=== PATIENT | male | born 1930 | race Caucasian/White ===

== ENCOUNTER 2016-07-29 10:56 | Outpatient (CLI) | payer MEDICARE, OTHER | END 2016-07-29 10:57 | disposition home or self-care (01) | DX: Z71.3 Dietary counseling and surveillance (principal); K90.0 Celiac disease ==

== ENCOUNTER 2016-11-05 13:47 | Outpatient (CLI) | payer MEDICARE, OTHER | END 2016-11-05 13:48 | disposition home or self-care (01) | LOC: SC 13:47 | PROVIDERS: ATTEND Nurse Practitioner Family | DX: G47.33 Obstructive sleep apnea (adult) (pediatric) (principal) | CPT/HCPCS: 99214; G0463; 99212 ==

== ENCOUNTER 2017-04-16 15:52 | Outpatient (CLI) | payer MEDICARE, OTHER ==
[2017-04-17 09:38] LABS: ALBUMIN/GLOBULIN RATIO 1.7 (1.0-2.2); BILIRUBIN,TOTAL 0.8 mg/dL (0.2-1.0); CALCIUM 9.3 mg/dL (8.5-10.3); POTASSIUM 4.7 mmol/L (3.5-5.0); TOTAL PROTEIN 6.9 g/dL (6.7-8.2)
== END 2017-04-16 15:53 | disposition home or self-care (01) ==
LOC: LAB.WCP 15:52
PROVIDERS: ATTEND Family Medicine
DX: I10 Essential (primary) hypertension (principal); E79.0 Hyperuricemia without signs of inflammatory arthritis and tophaceous disease
CPT/HCPCS: 36415; 80053; 84550; 85025

== ENCOUNTER 2017-09-01 08:29 | Outpatient (CLI) | payer MEDICARE, OTHER ==
[2017-09-01 12:31] LABS: BASOPHILS % (AUTO) 0.4 %; EOSINOPHILS # (AUTO) 0.2 10^3/uL (0.0-0.7); EOSINOPHILS % (AUTO) 3.5 %; HGB - HEMOGLOBIN 15.2 g/dL (14.0-18.0); LYMPHOCYTES # (AUTO) 1.8 10^3/uL (1.5-3.5); MEAN CORPUSCULAR HEMOGLOBIN 31.6 pg (27.0-31.0); MEAN CORPUSCULAR HGB CONC 33.1 g/dL (32.0-36.0); MEAN CORPUSCULAR VOLUME 95.5 fL (80.0-94.0); MEAN PLATELET VOLUME 9.4 fL (7.4-11.4); MONOCYTES # (AUTO) 0.5 10^3/uL (0.0-1.0); MONOCYTES % (AUTO) 9.4 %; NEUTROPHILS # (AUTO) 2.8 10^3/uL (1.5-6.6); NEUTROPHILS % (AUTO) 52.7 %; PLT - PLATELET COUNT 134 10^3/uL (130-450); RED BLOOD COUNT 4.83 10^6/uL (4.70-6.10); RED CELL DISTRIBUTION WIDTH 13.9 % (12.0-15.0); WHITE BLOOD COUNT 5.4 x10^3/uL (4.8-10.8)
[2017-09-01 12:45] LABS: ALBUMIN 3.9 g/dL (3.2-5.5); ALBUMIN/GLOBULIN RATIO 1.3 (1.0-2.2); ALKALINE PHOSPHATASE 68 IU/L (42-121); ALT ALANINE AMINOTRANSFERASE 30 IU/L (10-60); AST ASPARTATE AMINOTRANSFERASE 33 IU/L (10-42); BILIRUBIN,TOTAL 0.9 mg/dL (0.2-1.0); BUN - BLOOD UREA NITROGEN 29 mg/dL (6-20); CARBON DIOXIDE - CO2 26 mmol/L (21-32); CHLORIDE 104 mmol/L (101-111); CHOL/HDL RATIO 3.7 (<5.0); CHOLESTEROL 146 mg/dL; CREATININE 1.1 mg/dL (0.6-1.2); GFR - MDRD 63 (>89); GLUCOSE 92 mg/dL (70-100); HDL CHOLESTEROL 40 mg/dL; LDL CHOLESTEROL,CALCULATED 93 mg/dL; LDL/HDL RATIO 2.3 (<3.6); SODIUM 138 mmol/L (135-145); TOTAL PROTEIN 6.8 g/dL (6.7-8.2); VLDL CHOLESTEROL 13 mg/dL
[2017-09-01 13:11] LABS: HB2 TOTAL 17.1 g/dL; HEMOGLOBIN A1C 0.62 g/dL; HEMOGLOBIN A1C % 5.5 % (4.6-6.2)
== END 2017-09-01 08:30 | disposition home or self-care (01) ==
LOC: LAB.WCP 08:29
PROVIDERS: ATTEND Family Medicine
DX: R73.01 Impaired fasting glucose (principal); I10 Essential (primary) hypertension; Z12.5 Encounter for screening for malignant neoplasm of prostate; R94.5 Abnormal results of liver function studies
CPT/HCPCS: 36415; 80053; 80061; 83036; 84443; 85025; G0103; 83721; 84153

== ENCOUNTER 2017-09-04 08:00 | Outpatient (CLI) | payer MEDICARE, OTHER | END 2017-09-04 08:01 | disposition home or self-care (01) | LOC: LAB.WCP 08:00 | PROVIDERS: ATTEND Family Medicine | DX: G31.84 Mild cognitive impairment of uncertain or unknown etiology (principal) | CPT/HCPCS: 36415; 82607; 83921 ==

== ENCOUNTER 2017-10-22 10:50 | Emergency (ER) | payer MEDICARE, OTHER ==
[2017-10-22] MEDS ORDERED: TETANUS/DIPHTHERIA/PERTUSSIS 0.5 ML SYRINGE IM ONE (11:48)
[2017-10-22] MEDS ORDERED: LIDOCAINE JELLY 2% 5 ML TUBE TOP STA (11:48)
[2017-10-22] MEDS ORDERED: BACITRACIN OINT TOP STA (11:49)
--- NOTE | 2017-10-22 12:44 | ED Physician Documentation ---
PD HPI LOWER EXT INJURY - Stated complaint Stated Complaint: R KNEE PX/GLF - Chief complaint Chief Complaint: Trauma Ext - History obtained from History obtained from: Patient, Family (spouse) - History of Present Illness PD HPI LOW EXT INJURY LOCATION: Right, Knee Type of injury: Fall Where injury occurred: Park Timing - onset: Today (Just prior to arrival.) Associated symptoms: No: Weakness, Numbness Similar symptoms before: Has not had sx before - Additional information Additional information: The patient is a pleasant 87-year-old male who stumbled while walking on rocks, landing on his right knee and scraping the knee. The incident occurred just prior to arrival. He denies any other injuries. He has been ambulatory since the incident occurred. Tetanus status is unknown. Review of Systems Constitutional: denies: Fever Cardiac: denies: Chest pain / pressure Respiratory: denies: Dyspnea Skin: reports: Abrasion (s). denies: Rash Musculoskeletal: reports: Extremity pain (Right knee.). denies: Neck pain, Back pain Neurologic: denies: Focal weakness, Numbness, Headache, Head injury PD PAST MEDICAL HISTORY - Past Medical History Past Medical History: Yes Cardiovascular: Hypertension, High cholesterol Respiratory: Sleep apnea, CPAP use Endocrine/Autoimmune: None GI: Chronic diarrhea : Other HEENT: Chronic vision loss, Chronic hearing loss Psych: None Musculoskeletal: Gout Derm: Other - Past Surgical History Past Surgical History: Yes HEENT: Tonsil/Adenoidectomy - Present Medications Home Medications: Ambulatory Orders Medication Instructions Recorded Confirmed Allopurinol 150 mg PO DAILY 06/12/16 06/13/16 Cetirizine HCl [Zyrtec] 10 mg PO DAILY 06/12/16 06/13/16 Fluticasone [Flonase] 1 sprays ANNALEE BID 06/12/16 06/13/16 Lisinopril [Zestril] 10 mg PO DAILY 06/12/16 06/13/16 Multivitamin [Multivitamins] 1 each PO DAILY 06/12/16 06/13/16 Naproxen Sodium [Aleve] 220 mg PO DAILY 06/12/16 06/13/16 - Allergies Allergies/Adverse Reactions: Allergies Allergy/AdvReac Type Severity Reaction Status Date / Time No Known Drug Allergies Allergy Verified 10/22/17 11:03 - Social History Does the pt smoke?: No Smoking Status: Never smoker Does the pt drink ETOH?: Yes ETOH Use: Wine Does the pt have substance abuse?: No - Immunizations Immunizations are current?: No Immunizations: TDAP >10years/unknown - POLST Patient has POLST: No PD ED PE NORMAL - Vitals Vital signs reviewed: Yes (Systolic hypertension initially.) - General General: Alert and oriented X 3, Well developed/nourished - HEENT HEENT: Atraumatic - Neck Neck: No bony TTP - Respiratory Respiratory: No respiratory distress - Derm Derm: No rash - Extremities Extremities: No calf tenderness / cord, Other (There is a large superficial abrasion over the infrapatellar aspect of the right knee. It is about 2.5 x 5 cm in size. There is no laceration and no ecchymosis. There is no tenderness to palpation of the patella, and no joint instability detected. Distal neurovascular is intact.) - Neuro Neuro: Alert and oriented X 3, No motor deficit, No sensory deficit, Normal speech Results - Vitals Vitals: Vital Signs - 24 hr 10/22/17 10/22/17 10:58 12:52 Temperature 36.4 C L 36.3 C L Heart Rate 61 66 Respiratory 18 18 Rate Blood Pressure 157/63 H 148/70 H O2 Saturation 95 96 Oxygen O2 Source Room air PD MEDICAL DECISION MAKING - ED course Complexity details: re-evaluated patient, considered differential, d/w patient, d/w family ED course: Patient's presentation is significant for fall with large abrasion to the right knee. His presentation does not suggest bony injury, and I do not think imaging studies are clinically indicated. The patient and his agree. Treatment in the emergency department included administration of a tetanus booster. The wound was cleaned after topical anesthetic using lidocaine gel. Antibiotic ointment and nonadhesive dressing was applied. I discussed with him and his the expected course of healing, symptomatic treatment and outpatient follow-up, as well as potentially worrisome signs or symptoms that should prompt reevaluation in the emergency department. Departure - Departure Disposition: 01 Home, Self Care Clinical Impression: Abrasion of knee, right Qualifiers: Encounter type: initial encounter Qualified Code(s): S80.211A - Abrasion, right knee, initial encounter Condition: Stable Instructions: ED Abrasion Follow-Up: Fred Sutherland MD [Provider Admit Priv/Credential] - Comments: Keep the wound clean. Apply antibiotic ointment daily. Use Tylenol or ibuprofen if needed for discomfort. Follow up with your primary physician or return to the emergency department if you develop any sign of infection, or otherwise worsening symptoms. Discharge Date/Time: 10/22/17 12:52
[2017-10-22 12:54] VITALS: BP 148/70
== END 2017-10-22 12:52 | disposition home or self-care (01) ==
LOC: ED 10:50
DX: S80.211A Abrasion, right knee, initial encounter (principal); W01.0XXA Fall on same level from slipping, tripping and stumbling without subsequent striking against object, initial encounter; Y93.01 Activity, walking, marching and hiking; Y92.830 Public park as the place of occurrence of the external cause; Z23 Encounter for immunization; I10 Essential (primary) hypertension; E78.00 Pure hypercholesterolemia, unspecified; G47.30 Sleep apnea, unspecified
CPT/HCPCS: 90471; 90715; 99283; A9270; J3490

== ENCOUNTER 2017-10-28 09:23 | Outpatient (CLI) | payer MEDICARE, OTHER | END 2017-10-28 09:24 | disposition home or self-care (01) | LOC: SC 09:23 | PROVIDERS: ATTEND Nurse Practitioner Family | DX: G47.33 Obstructive sleep apnea (adult) (pediatric) (principal) | CPT/HCPCS: 99213; G0463; 99212 ==

== ENCOUNTER 2018-05-06 08:00 | Outpatient (CLI) | payer MEDICARE, OTHER | END 2018-05-06 23:59 | disposition home or self-care (01) | LOC: LAB.WCP 08:00 | PROVIDERS: ATTEND Physician Assistant Medical | DX: L01.01 Non-bullous impetigo (principal) | CPT/HCPCS: 36415; 84132 ==

== ENCOUNTER 2018-05-10 08:00 | Outpatient (CLI) | payer MEDICARE, OTHER ==
[2018-05-10 16:59] LABS: CALCIUM 9.5 mg/dL (8.5-10.3); CREATININE 1.3 mg/dL (0.6-1.2)
== END 2018-05-10 23:59 | disposition home or self-care (01) ==
LOC: LAB.WCP 08:00
PROVIDERS: ATTEND Family Medicine
DX: I10 Essential (primary) hypertension (principal)
CPT/HCPCS: 36415; 80048

== ENCOUNTER 2018-07-22 14:02 | Emergency (ER) | payer MEDICARE, OTHER ==
--- NOTE | 2018-07-22 15:47 | ED Physician Documentation ---
PD HPI WOUND RECHECK - Stated complaint Stated Complaint: HEAD INJ - Chief complaint Chief Complaint: Trauma Hd/Nk - Histroy obtained from History obtained from: Patient, Family - History of Present Illness Location: Scalp Timing - onset: How many months ago (6+) Similar symptoms before: Diagnosis (wound s/p irradiation) Recently seen: Clinic - Additional information Additional information: 88-year-old male with a nonhealing wound on the vertex of his scalp that has been present for 6-7 months and is related to an area of his scalp that he ended up having surgery and radiation therapy to. The area has been slow to heal and he is getting wound services done at [facility]. Yesterday he struck himself in the top of the head, he did not get knocked unconscious, he had a slight amount of bleeding. He had some trouble controlling the bleeding and the wound care clinic asked him to come to the emergency department for evaluation of the bleeding to control bleeding to be able to place another dressing. The bleeding is now controlled. Review of Systems Constitutional: denies: Fever Respiratory: denies: Cough GI: denies: Vomiting Skin: denies: Rash PD PAST MEDICAL HISTORY - Past Medical History Cardiovascular: Hypertension, High cholesterol Respiratory: Sleep apnea, CPAP use Endocrine/Autoimmune: None GI: Chronic diarrhea : Other HEENT: Chronic vision loss, Chronic hearing loss Psych: None Musculoskeletal: Gout Derm: Other - Past Surgical History Past Surgical History: Yes HEENT: Tonsil/Adenoidectomy - Present Medications Home Medications: Ambulatory Orders Medication Instructions Recorded Confirmed Allopurinol 150 mg PO DAILY 06/12/16 06/13/16 Cetirizine HCl [Zyrtec] 10 mg PO DAILY 06/12/16 06/13/16 Fluticasone [Flonase] 1 sprays ANNALEE BID 06/12/16 06/13/16 Lisinopril [Zestril] 10 mg PO DAILY 06/12/16 06/13/16 Multivitamin [Multivitamins] 1 each PO DAILY 06/12/16 06/13/16 Naproxen Sodium [Aleve] 220 mg PO DAILY 06/12/16 06/13/16 - Allergies Allergies/Adverse Reactions: Allergies Allergy/AdvReac Type Severity Reaction Status Date / Time No Known Drug Allergies Allergy Verified 07/22/18 14:13 - Social History Does the pt smoke?: No Smoking Status: Never smoker Does the pt drink ETOH?: Yes Does the pt have substance abuse?: No - Immunizations Immunizations are current?: No Immunizations: TDAP >10years/unknown - POLST Patient has POLST: No PD ED PE NORMAL - Vitals Vital signs reviewed: Yes (normal ) - General General: Alert and oriented X 3, No acute distress, Well developed/nourished - HEENT HEENT: PERRL, EOMI, Other (There is a 3cm round area on the vertex just left of center that appears to be healing by secondary intention. There is no active bleeding and the fenestrated dressing is removed and replaced. 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, No motor deficit, No sensory deficit, Normal speech Eye Opening: Spontaneous Motor: Obeys Commands Verbal: Oriented GCS Score: 15 - Psych Psych: Normal mood, Normal affect Results - Vitals Vitals: Vital Signs - 24 hr 07/22/18 07/22/18 14:08 15:47 Temperature 36.4 C L 36.3 C L Heart Rate 65 58 L Respiratory 20 18 Rate Blood Pressure 127/69 144/65 H O2 Saturation 99 99 Oxygen O2 Source Room air PD MEDICAL DECISION MAKING - ED course Complexity details: considered differential, d/w patient, d/w family ED course: Bleeding is been controlled to this circular wound on the on the vertex of the scalp that is approximately 3 cm round. Dressing is replaced to this to include a DuoDERM with a fenestrated base layer. Departure - Departure Disposition: 01 Home, Self Care Clinical Impression: Encounter for wound care Condition: Stable Instructions: ED Wound Care Follow-Up: Fred Sutherland MD [Primary Care Provider] - Comments: Follow-up with the wound clinic as previously planned.
[2018-07-22 15:48] VITALS: BP 144/65
== END 2018-07-22 15:55 | disposition home or self-care (01) ==
LOC: ED 14:02
DX: S01.00XD Unspecified open wound of scalp, subsequent encounter (principal); X58.XXXD Exposure to other specified factors, subsequent encounter; I10 Essential (primary) hypertension; E78.00 Pure hypercholesterolemia, unspecified; Z98.890 Other specified postprocedural states
CPT/HCPCS: 99282; 99283

== ENCOUNTER 2018-07-29 11:13 | Outpatient (CLI) | payer MEDICARE, OTHER ==
--- NOTE | 2018-07-29 13:27 | XRAY Report ---
Reason: KNEE PAIN,LEFT,HX PERSONAL, MALIGNANCY,PROSTATE Procedure Date: 07/29/2018 Accession Number: [id number] / [id number] Procedure: XR - Knee 3 View LT CPT Code: FULL RESULT: EXAM: LEFT KNEE RADIOGRAPHY EXAM DATE: 07/29/2018 11:52 AM. CLINICAL HISTORY: Knee pain, left, history of personal malignancy prostate. COMPARISON: None. TECHNIQUE: 3 views. FINDINGS: Bones: Normal. No fractures or bone lesions. Joints: Severe degenerative joint space narrowing, osteophyte and subchondral sclerosis of the lateral greater than medial compartments. Large effusion with ossific densities in the posterior joint capsule and suprapatellar region consistent with calcific free bodies. There is deviation of the popliteal artery possibly due to popliteal cyst formation. Soft Tissues: Normal. No soft tissue swelling. 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 RADIA
== END 2018-07-29 11:14 | disposition home or self-care (01) ==
LOC: DI 11:13
PROVIDERS: ATTEND Family Medicine
DX: M17.12 Unilateral primary osteoarthritis, left knee (principal); M23.42 Loose body in knee, left knee; M25.462 Effusion, left knee; Z85.46 Personal history of malignant neoplasm of prostate

== ENCOUNTER 2018-08-27 15:50 | Outpatient (CLI) | payer MEDICARE, OTHER ==
--- NOTE | 2018-08-27 17:17 | Ultrasound Report ---
Reason: SWELLING OF LEFT LEG Procedure Date: 08/27/2018 Accession Number: [id number] / [id number] Procedure: US - Duplex Ext Veins Left CPT Code: FULL RESULT: EXAM: LEFT LOWER EXTREMITY VENOUS ULTRASOUND EXAM DATE: 08/27/2018 05:09 PM. CLINICAL HISTORY: Left leg swelling. COMPARISON: None. TECHNIQUE: Real-time sonographic vascular imaging was performed by the quality control assessor through the lower extremity utilizing both color-flow and Doppler spectral analysis. Multiple real estate representative static images were saved for review. FINDINGS: Common Femoral Vein (CFV): Normal. CFV-GSV Junction: Normal. Profunda Femoral Vein (PFV): Normal. Femoral Vein (FV) Prox: Normal. Femoral Vein (FV) Mid: Normal. Femoral Vein (FV) Dist: Normal. Popliteal Vein: Normal. Posterior Tibial Veins: Normal. Peroneal Veins: Normal. Contralateral Side CFV: Normal. Other: Generalized subcutaneous edema seen. IMPRESSION: No deep venous thrombosis demonstrated. RADIA
== END 2018-08-27 15:51 | disposition home or self-care (01) ==
LOC: DI 15:50
PROVIDERS: ATTEND Family Medicine
DX: M79.89 Other specified soft tissue disorders (principal)

== ENCOUNTER 2019-01-05 11:48 | Emergency (ER) | payer MEDICARE, OTHER ==
[2019-01-05 13:47] LABS: BASOPHILS % (AUTO) 0.5 %; EOSINOPHILS # (AUTO) 0.1 10^3/uL (0.0-0.7); EOSINOPHILS % (AUTO) 1.4 %; HGB - HEMOGLOBIN 15.6 g/dL (14.0-18.0); LYMPHOCYTES # (AUTO) 1.8 10^3/uL (1.5-3.5); MEAN CORPUSCULAR HEMOGLOBIN 32.2 pg (27.0-31.0); MEAN CORPUSCULAR HGB CONC 32.8 g/dL (32.0-36.0); MEAN CORPUSCULAR VOLUME 98.1 fL (80.0-94.0); MEAN PLATELET VOLUME 10.2 fL (7.4-11.4); MONOCYTES # (AUTO) 0.7 10^3/uL (0.0-1.0); MONOCYTES % (AUTO) 11.6 %; NEUTROPHILS # (AUTO) 3.6 10^3/uL (1.5-6.6); NEUTROPHILS % (AUTO) 57.2 %; PLT - PLATELET COUNT 157 10^3/uL (130-450); RED BLOOD COUNT 4.85 10^6/uL (4.70-6.10); RED CELL DISTRIBUTION WIDTH 14.1 % (12.0-15.0); WHITE BLOOD COUNT 6.3 x10^3/uL (4.8-10.8)
[2019-01-05 13:58] LABS: ALBUMIN 4.2 g/dL (3.2-5.5); ALBUMIN/GLOBULIN RATIO 1.4 (1.0-2.2); BILIRUBIN,TOTAL 1.1 mg/dL (0.2-1.0); CALCIUM 9.6 mg/dL (8.5-10.3); TOTAL PROTEIN 7.3 g/dL (6.7-8.2)
--- NOTE | 2019-01-05 14:01 | XRAY Report ---
Reason: Chest Pain Procedure Date: 01/05/2019 Accession Number: [id number] / [id number] Procedure: XR - Chest 1 View X-Ray CPT Code: 88442 FULL RESULT: EXAM: CHEST RADIOGRAPHY EXAM DATE: 01/05/2019 01:46 PM. CLINICAL HISTORY: Chest Pain. COMPARISON: CHEST 2 VIEW PA/LAT 10/13/2014 2:05 PM. TECHNIQUE: 1 view. FINDINGS: Cardiac leads overlie the chest. Heart size is normal. Calcified plaques in the thoracic aorta. The lungs are hypoventilated. Asymmetric elevation of the right hemidiaphragm. Diffuse prominence of the pulmonary interstitium may be artifactual versus changes from chronic pulmonary disease. No consolidation, pleural effusion, or pneumothorax. Severe degenerative changes to the glenohumeral joints. IMPRESSION: Hypoventilated exam. Otherwise no acute cardiopulmonary findings. RADIA
--- NOTE | 2019-01-05 14:27 | ED Physician Documentation ---
PD HPI Fall - Stated complaint Stated Complaint: GLF - SHOULDER/ARM PX - Chief complaint Chief Complaint: Wound - History obtained from History obtained from: Patient, Family - History of Present Illness Mechanism of injury: Tripped Fall distance: Standing position Where injury occurred: Home Timing - onset: How many days ago (2) Injury(ies) location: Other (R shoulder, R upper arm.). No: Head, Neck, Chest, Abdomen, Back Pain level max: 3 Pain level now: 2 Quality of pain: Pain Associated symptoms: No: LOC, AMS, Amnesia, Seizures, Ear drainage, Nasal drainage, Neck pain, Weakness, Paresthesias, Dyspnea, Nausea / vomiting, Hematemesis, Abdominal distension Symptoms improve with: Rest Worsens with: Movement, Palpation Contributing factors: No: Anticoagulated, Intoxicated Recently seen: Not recently seen Review of Systems Constitutional: denies: Fever, Chills Nose: denies: Rhinorrhea / runny nose, Congestion GI: denies: Vomiting : denies: Dysuria Musculoskeletal: denies: Neck pain, Back pain Neurologic: denies: Focal weakness, Numbness, Headache, Head injury PD PAST MEDICAL HISTORY - Past Medical History Cardiovascular: Hypertension, High cholesterol Respiratory: Sleep apnea, CPAP use Endocrine/Autoimmune: None GI: Chronic diarrhea : Other HEENT: Chronic vision loss, Chronic hearing loss Psych: None Musculoskeletal: Gout Derm: Other - Past Surgical History Past Surgical History: Yes HEENT: Tonsil/Adenoidectomy - Present Medications Home Medications: Ambulatory Orders Medication Instructions Recorded Confirmed Allopurinol 150 mg PO DAILY 06/12/16 06/13/16 Cetirizine HCl [Zyrtec] 10 mg PO DAILY 06/12/16 06/13/16 Fluticasone [Flonase] 1 sprays ANNALEE BID 06/12/16 06/13/16 Lisinopril [Zestril] 10 mg PO DAILY 06/12/16 06/13/16 Multivitamin [Multivitamins] 1 each PO DAILY 06/12/16 06/13/16 Naproxen Sodium [Aleve] 220 mg PO DAILY 06/12/16 06/13/16 Aspirin EC [Ecotrin] 325 mg PO DAILY #30 tablet 01/05/19 Metoprolol Tartrate 12.5 mg PO BID #30 tablet 01/05/19 - Allergies Allergies/Adverse Reactions: Allergies Allergy/AdvReac Type Severity Reaction Status Date / Time No Known Drug Allergies Allergy Verified 07/22/18 14:13 - Social History Does the pt smoke?: No Smoking Status: Never smoker Does the pt drink ETOH?: Yes Does the pt have substance abuse?: No - Immunizations Immunizations are current?: No Immunizations: TDAP >10years/unknown - POLST Patient has POLST: No PD ED PE NORMAL - Vitals Vital signs reviewed: Yes - General General: Alert and oriented X 3, No acute distress - HEENT HEENT: Atraumatic, PERRL, Ears normal, Moist mucous membranes, Pharynx benign - Neck Neck: Supple, no meningeal sign, No bony TTP (No step-off or deformity) - Cardiac Cardiac: Other (irregularly irregular) - Respiratory Respiratory: No respiratory distress - Abdomen Abdomen: Soft, Non tender, Non distended - Back Back: No spinal TTP (No step-off or deformity) - Derm Derm: Warm and dry - Extremities Extremities: No edema, No calf tenderness / cord, Other (Mild pain with range of motion of the right shoulder. 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, No motor deficit, No sensory deficit, Normal speech Eye Opening: Spontaneous Motor: Obeys Commands Verbal: Oriented GCS Score: 15 Results - Vitals Vitals: Vital Signs - 24 hr 01/05/19 01/05/19 01/05/19 11:55 13:12 15:42 Temperature 36.7 C Heart Rate 106 H 94 97 Respiratory 24 19 18 Rate Blood Pressure 150/97 H 142/81 H 127/67 O2 Saturation 97 97 98 Oxygen O2 Source Room air - EKG (time done) 1205 Rate: Rate (enter#) (107) Rhythm: Atrial fibrillation [place]: Anterior hemiblock (LAFB) QRS: Normal Ischemia: Normal ST segments, Other (late R wave transition) - Labs Labs: Laboratory Tests 01/05/19 01/05/19 01/05/19 13:41 13:41 13:41 WBC 6.3 RBC 4.85 Hgb 15.6 Hct 47.6 MCV 98.1 H MCH 32.2 H MCHC 32.8 RDW 14.1 Plt Count 157 MPV 10.2 Neut # (Auto) 3.6 Lymph # (Auto) 1.8 [place] # (Auto) 0.7 Eos # (Auto) 0.1 Baso # (Auto) 0.0 Absolute Nucleated RBC 0.00 Nucleated RBC % 0.0 Sodium 142 Potassium 4.0 Chloride 105 Carbon Dioxide 25 Anion Gap 12.0 BUN 39 H Creatinine 1.0 Estimated GFR (MDRD) 71 L Glucose 99 Calcium 9.6 Total Bilirubin 1.1 H AST 29 ALT 27 Alkaline Phosphatase 77 Troponin I < 0.04 Total Protein 7.3 Albumin 4.2 Globulin 3.1 Albumin/Globulin Ratio 1.4 Lipase 29 - Rads (name of study) Right shoulder x-ray Radiology: Prelim report reviewed, EMP read contemporaneously, See rad report (End-stage changes of the glenohumeral articulation. No acute fracture or dislocation is seen.) Chest x-ray Radiology: Prelim report reviewed, EMP read contemporaneously, See rad report (Hypoventilated exam. Otherwise no acute cardiopulmonary findings) PD MEDICAL DECISION MAKING - ED course Complexity details: reviewed results, re-evaluated patient, considered dif ferential, d/w patient, d/w family ED course: 88-year-old male with no acute findings after the fall other than a shoulder injury from 2 days ago. Using the arm well. Has significant arthritis of the right glenohumeral joint. No acute findings. He is also found to be in new onset A. fib. Unclear how long. Given his fall, will not place on anticoagulants at this time. Will place him on a full dose aspirin. Rate is well controlled with a single dose of metoprolol. Will place him on 12-1/2 mg by mouth twice daily until he sees his doctor. Prior charts were reviewed with no mention of atrial fibrillation. No chest pain. No shortness of breath. Patient and family counseled regarding signs and symptoms for which I believe and urgent re-evaluation would be necessary. Patient with good understanding of and agreement to plan and is comfortable going home at this time This document was made in part using voice recognition software. While efforts are made to proofread this document, sound alike and grammatical errors may occur. Departure - Departure Disposition: 01 Home, Self Care Clinical Impression: New onset atrial fibrillation, Arthritis of right shoulder region Fall Qualifiers: Encounter type: initial encounter Qualified Code(s): W19.XXXA - Unspecified fall, initial encounter Condition: Good Instructions: ED Afib Follow-Up: Fred Sutherland MD [Primary Care Provider] - Within 1 week Prescriptions: Aspirin EC [Ecotrin] 325 mg PO DAILY #30 tablet Metoprolol Tartrate 12.5 mg PO BID #30 tablet Comments: Follow-up with Dr. Sutherland in 1 week for further care. You do have atrial fibrillation, which is an irregular heartbeat. Start on a full aspirin daily. We will also start you on a low-dose of metoprolol to control your heart rate. Return if you worsen. Your x-rays show severe arthritis in the right shoulder. Discharge Date/Time: 01/05/19 15:42
[2019-01-05] MEDS ORDERED: METOPROLOL TARTRATE 50 MG TABLET PO STA (14:30)
[2019-01-05] MEDS ORDERED: BACITRACIN OINT TOP STA (14:32)
--- NOTE | 2019-01-05 14:52 | XRAY Report ---
Reason: fall, R shoulder pain Procedure Date: 01/05/2019 Accession Number: [id number] / [id number] Procedure: XR - Shoulder 3 View RT CPT Code: FULL RESULT: EXAM: RIGHT SHOULDER RADIOGRAPHY EXAM DATE: 01/05/2019 02:25 PM. CLINICAL HISTORY: Right shoulder pain. Ground-level fall last night. COMPARISON: None. TECHNIQUE: 3 views. FINDINGS: Bones: Normal. No fracture or bone lesion. Joints: The glenohumeral and acromioclavicular joints are normally located with end-stage changes at the glenohumeral articulation including subchondral cyst formation, sclerosis and osteophytosis; complete joint space loss. Soft tissues: The visualized hemithorax is unremarkable. No soft tissue swelling. IMPRESSION: End-stage changes of the glenohumeral articulation. No acute fracture or dislocation is seen. RADIA
[2019-01-05 15:43] VITALS: BP 127/67
== END 2019-01-05 15:42 | disposition home or self-care (01) ==
LOC: ED 11:48
DX: S49.91XA Unspecified injury of right shoulder and upper arm, initial encounter (principal); W01.0XXA Fall on same level from slipping, tripping and stumbling without subsequent striking against object, initial encounter; Y92.009 Unspecified place in unspecified non-institutional (private) residence as the place of occurrence of the external cause; I48.91 Unspecified atrial fibrillation; I44.4 Left anterior fascicular block; M19.011 Primary osteoarthritis, right shoulder; I10 Essential (primary) hypertension
CPT/HCPCS: 36415; 71045; 73030; 80053; 83690; 84484; 85025; 93005; 99284; A9270

== ENCOUNTER 2019-01-10 | Outpatient (CLI) | payer MEDICARE, OTHER | END 2019-01-10 13:15 | disposition home or self-care (01) | DX: G47.33 Obstructive sleep apnea (adult) (pediatric) (principal) | CPT/HCPCS: 99214; G0463; 99212 ==

== ENCOUNTER 2019-02-17 08:00 | Outpatient (CLI) | payer MEDICARE, OTHER | END 2019-02-17 23:59 | disposition home or self-care (01) | LOC: LAB.WCP 08:00 | PROVIDERS: ATTEND Family Medicine | DX: R41.3 Other amnesia (principal) | CPT/HCPCS: 36415; 82607 ==

== ENCOUNTER 2019-12-01 11:51 | Outpatient (CLI) | payer MEDICARE, OTHER ==
--- NOTE | 2019-12-01 12:19 | CT Report ---
Reason: DEMENTIA Procedure Date: 12/01/2019 Accession Number: [id number] / [id number] Procedure: CT - HEAD WO CPT Code: Final Report FULL RESULT: PROCEDURE: HEAD WO INDICATIONS: DEMENTIA TECHNIQUE: Noncontrast 4.5 mm thick angled axial sections acquired from the foramen magnum to the vertex. For radiation dose reduction, the following was used: automated exposure control, adjustment of mA and/or kV according to patient size. COMPARISON: None. FINDINGS: Image quality: Excellent. CSF spaces: Basal cisterns are patent. No extra-axial fluid collections. Ventricles are normal in size and shape. Brain: No midline shift. No intracranial masses or hemorrhage. No large area of hypodensity in a vascular distribution to suggest infarction. Periventricular hypodensity consistent with chronic microvascular ischemic disease. Distal intracranial ICA atherosclerotic plaque. Age-related parenchymal loss. Skull and face: Calvarium and visualized facial bones are intact, without suspicious lesions. Sinuses: Visualized sinuses and mastoids are clear. IMPRESSION: No acute intracranial abnormality. Chronic microvascular ischemic disease. Reviewed by: Lito Monge MD on 12/01/2019 12:17 PM PDT Approved by: Lito Monge MD on 12/01/2019 12:17 PM PDT Station ID: [id number]
== END 2019-12-01 11:52 | disposition home or self-care (01) ==
LOC: DI 11:51
PROVIDERS: ATTEND Psychiatry & Neurology Neurology
DX: F03.90 Unspecified dementia, unspecified severity, without behavioral disturbance, psychotic disturbance, mood disturbance, and anxiety (principal)
CPT/HCPCS: 70450

== ENCOUNTER 2020-04-04 08:00 | Outpatient (CLI) | payer MEDICARE, OTHER ==
[2020-04-04 18:30] LABS: BASOPHILS % (AUTO) 0.4 %; EOSINOPHILS # (AUTO) 0.1 10^3/uL (0.0-0.7); EOSINOPHILS % (AUTO) 1.1 %; LYMPHOCYTES # (AUTO) 1.9 10^3/uL (1.5-3.5); LYMPHOCYTES % (AUTO) 26.5 %; MEAN CORPUSCULAR HEMOGLOBIN 32.8 pg (27.0-31.0); MEAN CORPUSCULAR HGB CONC 32.9 g/dL (32.0-36.0); MEAN CORPUSCULAR VOLUME 99.8 fL (80.0-94.0); MEAN PLATELET VOLUME 11.1 fL (7.4-11.4); MONOCYTES # (AUTO) 0.8 10^3/uL (0.0-1.0); MONOCYTES % (AUTO) 11.7 %; NEUTROPHILS # (AUTO) 4.2 10^3/uL (1.5-6.6); PLT - PLATELET COUNT 187 10^3/uL (130-450); RED BLOOD COUNT 4.88 10^6/uL (4.70-6.10); RED CELL DISTRIBUTION WIDTH 14.1 % (12.0-15.0)
[2020-04-04 18:41] LABS: ALBUMIN 4.3 g/dL (3.2-5.5); ALBUMIN/GLOBULIN RATIO 1.4 (1.0-2.2); BILIRUBIN,TOTAL 0.7 mg/dL (0.2-1.0); CALCIUM 9.8 mg/dL (8.5-10.3); CREATININE 1.2 mg/dL (0.6-1.2); TOTAL PROTEIN 7.4 g/dL (6.7-8.2)
== END 2020-04-04 08:01 | disposition home or self-care (01) ==
LOC: LAB.WCP 08:00
PROVIDERS: ATTEND Family Medicine
DX: R60.0 Localized edema (principal)
CPT/HCPCS: 36415; 80053; 84443; 85025

== ENCOUNTER 2020-04-04 12:44 | Outpatient (CLI) | payer MEDICARE, OTHER ==
[2020-04-04 13:41] VITALS: BP 90/54
--- NOTE | 2020-04-04 13:41 | SLEEP CARE CONSULTATION ---
Information from patient questionnaire entered by Nicolasa Galvin. I have reviewed and concur with the information entered by Nicolasa Galvin. This document represents the service I personally performed and the decisions made by me, Allison Veloz, RN, MSN, [employer]. History of Present Illness Service Date and Time: 04/04/2020 1244 Previous diagnosis: Severe, Obstructive Sleep Apnea-Hypopnea Syndrome AHI: 42.7 (in 2014) Reason for follow up: first compliance after device update Accompanied by: Spouse Equipment type: CPAP Equipment obtained from: [employer] (transfer working well and appreciate help) Mask style: Nasal (wisp) Backup mask available: Yes (old mask ) Last cushion change: every 2 weeks Prior sleep studies: Yes Year and Where: 2015 - [facility] sleep CPAP Compliance Data - Data Reviewed with Patient Average duration of nightly device use: 9 Compliance rate %: 100 Current pressure setting (cmH2O): 10-12 Humidity settin Average residual AHI: 5.4 (seems related to mask leaks) Central apnea: 1.5 Obstructive apnea: 0.1 Hypopnea: 1.3 unknown 2.5 Average large leak: 15.9 Subjective Missed days of use due to: reports: mask issues Patient concerns: denies: aerophagia, mask discomfort, air blowing in eyes, mask leak noise, condensation in mask/hose, nasal congestion, dry mouth, nose, thr oat, epistaxis, other Observed to snore while using device: No Current pressure setting perceived as: comfortable On therapy, patient: reports: sleeping better, awakening more refreshed, more rested overall. denies: drowsiness while driving (does not drive) Initial [place] Sleepiness Scale score: 8 (in 2015) Current [place] Sleepiness Scale score: 14 Allergies and Home Medications Known drug allergies: No Home medication list reviewed: Yes (no changes - donzepril on holdndue to diarrhea ) Review of Systems Review of systems same as previous: Yes ([facility] scalp wound ) Physical Exam Blood Pressure: 90/54 (usual range per spouse, no symptoms of light headedness) Cuff size: regular Heart Rate: 91 O2 Saturation: 98 Height: 6 ft 1 in Weight: 193 lb Body Mass Index: 25.4 BMI Classification: Overweight Impression and Plan 1. Obstructive Sleep Apnea-Hypopnea Syndrome, severe, with good treatment compliance and slight elevation of residual AHI. This appears to be due to mask leaks and can be over 10. I discussed adjusting mask tighter with spouse. I also informed her how she could track mask leaks on his device. After some discussion, I will order a mask refitting by the RT to evaluate if current mask can be adjusted or if another is better. In addition, I will change his autoCPAP pressure slightly to [id number]. Spouse shown how to get card out. apnea control. On CPAP therapy, the patient has better sleep quality and is more rested overall. He continues to nap states his spouse due to his [place]. Patient's apnea severity and rationale for treatment to reduce apnea, improve sleep quality and reduce cardiovascular and cerebrovascular events was reviewed. Extra time spent with patient due to hearing deficit as he did not wear his hearing aids as mask bothers. Advised to bring in pocket next time so can put in his ears at office visit. * Change auto CPAP pressure to 10-13 cmH2O * mask refitting * Notify me if snoring with mask or feeling that the pressure is too much or too little * Attempt to lose weight * Call this office if any problems using CPAP * Return for follow up in 1 year , or sooner if concerns arise Visit Type: In Office Time Spent with Patient (minutes): 28 Provider Statement: I spent 100% of the Face to Face Visit with the patient with greater than 50% spent counseling the patient and coordination of care.
== END 2020-04-04 12:45 | disposition home or self-care (01) ==
LOC: SC 12:44
PROVIDERS: ATTEND Nurse Practitioner Family
DX: G47.33 Obstructive sleep apnea (adult) (pediatric) (principal); E66.3 Overweight; Z68.25 Body mass index [BMI] 25.0-25.9, adult; R60.0 Localized edema
CPT/HCPCS: 36415; 80053; 84443; 85025; 99214; G0463; 99212

== ENCOUNTER 2020-04-09 16:21 | Outpatient (CLI) | payer MEDICARE, OTHER | END 2020-04-09 16:22 | disposition home or self-care (01) | LOC: COV 16:21 | PROVIDERS: ATTEND Family Medicine | DX: Z20.828 Contact with and (suspected) exposure to other viral communicable diseases (principal) ==